=== PATIENT | female | born 1965 | race Caucasian/White ===

== ENCOUNTER → 2020-05-10 10:23 | Outpatient (CLI) | payer BC, SELFPAY ==
--- NOTE | ~2020-05-10 | MM_ITS ---
EXAMINATION: MM screening adalid BI w peter HISTORY: Screening TECHNIQUE: Craniocaudal and mediolateral oblique 3-D tomosynthesis images were obtained and synthetic 2-D images were generated. CAD analysis was submitted and interpreted. COMPARISON: No prior mammogram is available for comparison at this institution. BREAST PARENCHYMAL COMPOSITION: The breasts are heterogeneously dense, which may obscure small masses . FINDINGS: There are masses bilaterally in the upper outer quadrants which are partially obscured by f ibroglandular tissue. There are no suspicious calcifications in either breast. IMPRESSION: 1. Bilateral breast masses, upper outer quadrants. 2. Additional mammographic views and possible breast ultrasound are recommended. BI-RADS Category 0: Incomplete: Needs additional imaging evaluation. Reviewed, dictated and finalized at location A. TEAM LEAD IMPRESSION: 1. Bilateral breast masses, upper outer quadrants. 2. Additional mammographic views and possible breast ultrasound are recommended . BI-RADS Category 0: Incomplete: Needs additional imaging evaluation.
== END ==
PROVIDERS: PCP Internal Medicine; Visit Provider Obstetrics & Gynecology Gynecology
DX: Z12.31 Encounter for screening mammogram for malignant neoplasm of breast (principal); R92.8 Other abnormal and inconclusive findings on diagnostic imaging of breast
CPT/HCPCS: 77063; 77067

== ENCOUNTER → 2020-06-06 08:40 | Outpatient (CLI) | payer BC, SELFPAY ==
--- NOTE | ~2020-06-06 | MMUS_ITS ---
EXAMINATION: MM diagnostic mammo BI, US breast BI limited HISTORY: Follow-up breast asymmetries TECHNIQUE: Additional 3-D tomosynthesis images of the breasts were performed and synthetic 2-D images were generated. CAD analysis was submitted and interpreted. High resolution limited bilateral breast ultrasound was performed. COMPARISON: 05/10/2020 BREAST PARENCHYMAL COMPOSITION: The breasts are heterogenously dense, which may obscure small masses. FINDINGS: MAMMOGRAPHIC FINDINGS: There are partially obscured masses in the upper outer quadrant of both breasts. There are no suspici ous calcifications or architectural distortion. ULTRASOUND: Right breast ultrasound: Multiple simple cysts of the right breast. At 9:00, 5 cm from the nipple the re is a 4 mm hypoechoic mass with posterior acoustic enhancement and low-level internal echoes, likel y complicated cysts. There is a 1 cm cyst at 10:00, 8 cm from the nipple. At 11:00, 8 cm from the nip ple, there is a poorly circumscribed hypoechoic mass with posterior shadowing measuring 1.3 x 1.1 x 0 .9 cm. No internal vascularity. Left breast ultrasound: At 2:00, 6 cm from the nipple there is an 8 mm cyst. At 2:00, 6 cm from the n ipple there is a 7 mm cyst. At 3:00, 8 cm from the nipple there is an oval hypoechoic mass measuring 9 mm with low-level internal echoes and posterior acoustic enhancement, consistent with complicated c ysts. IMPRESSION: 1. Solid-appearing irregular shaped hypoechoic right breast mass at 11:00, 8 cm from the nipple measu ring up to 1.3 cm. 2. Ultrasound-guided right breast biopsy recommended. BI-RADS category 4, suspicious findings. Reviewed, dictated and finalized at location A. NT PROSECUTION ATTORNEY IMPRESSION: 1. Solid-appearing irregular shaped hypoechoic right breast mass at 11:00, 8 cm from the nipple measuring up to 1.3 cm. 2. Ultrasound-guided right breast biopsy recommended. BI-RADS category 4, suspicious findings.
== END ==
PROVIDERS: PCP Internal Medicine; Visit Provider Obstetrics & Gynecology Gynecology
DX: R92.8 Other abnormal and inconclusive findings on diagnostic imaging of breast (principal)
CPT/HCPCS: 76642; 77066

== ENCOUNTER → 2021-01-10 14:40 | Outpatient (CLI) | payer BC, SELFPAY ==
--- NOTE | ~2021-01-10 | DEXA_ITS ---
Bone Density Report Name: Lizbeth Wong Age: 55 Sex: Female Ethnicity: White Date of : 1965 Indication: monitoring treatment; height loss; postmenopausal Referring Provider: AGAPITO MARCOS Study: Bone densitometry was performed. Exam Date: January 10, 2021 Accession number: [id number] Bone Density: Region BMD T-score Z-score Classification AP Spine (L1, L2, L3) 0.998 -0.2 0.9 Normal Femoral Neck (Left) 0.848 0.0 1.1 Normal Total Hip (Left) 1.118 1.4 2.1 Normal Femoral Neck (Right) 0.795 -0.5 0.6 Normal Total Hip (Right) 1.042 0.8 1.5 Normal Total Hip Mean 1.080 1.1 1.8 Normal World Health Organization criteria for BMD impression classify patients as: Normal (T-score at or above -1.0), Osteopenia (T-score between -1.0 and -2.5), or Osteoporosis (T-score at or below -2.5). 10-year Fracture Risk: FRAX not reported because: All T-scores for Spine Total, Hip Total, Femoral Neck at or above -1.0 Treated for osteoporosis Previous Exams: Region Exam Age BMD T-score BMD Change BMD Change Date g/cm2 vs Baseline vs Previous AP Spine(L1, L2, L3) 01/10/2021 55 0.998 -0.2 0.010 0.010 09/11/2018 53 0.988 -0.3 Total Hip(Left) 01/10/2021 55 1.118 1.4 0.019 0.019 09/11/2018 53 1.099 1.3 Total Hip(Right) 01/10/2021 55 1.042 0.8 0.047* 0.047* 09/11/2018 53 0.995 0.4 *Denotes significance at 95% confidence level, LSC for AP Spine = 0.022 g/cm2, LSC for Total Hip = 0.027 g/cm2 Clinical Information Provided by Patient: Is being treated for osteoporosis Has used the following medications: HRT (i.e. estrogen/hormone therapy), Vitamin D, Calcium Patient maximum height was 63 Menopause Age: 53 No regular weight bearing exercise Does not regularly consume dairy products Drinks caffeinated beverages Onset of menses at age 13 Number of children 0 Impression: The patient has normal bone mass. No significant bone loss was observed. Discussion: PATIENT UNDER TREATMENT WITH NO SIGNIFICANT BMD LOSS SINCE LAST EXAM. In an untreated patient, BMD typically declines with age. A lack of decline or gain is usually a sign that treatment is efficacious and fracture risk is reduced. It is important to ask patients whether they are taking their medications and to encourage continued and appropriate compliance with their osteoporosis therapies to reduce fracture risk. It is also importan
== END ==
PROVIDERS: PCP Internal Medicine; Visit Provider Obstetrics & Gynecology Gynecology
DX: Z78.0 Asymptomatic menopausal state (principal)
CPT/HCPCS: 77080

== ENCOUNTER → 2021-06-01 14:36 | Outpatient (CLI) | payer BC, SELFPAY ==
--- NOTE | ~2021-06-01 | US_ITS ---
EXAMINATION: US transvaginal DATE: 06/01/2021 15:00 INDICATION: Postmenopausal bleeding TECHNIQUE: Multiple endovaginal sonographic images of the pelvis were obtained. COMPARISON: None. FINDINGS: The uterus measures 6.0 x 3.1 x 2.8 cm. The endometrial complex measures 6 mm. The ovaries are not visualized however no adnexal abnormality is seen. There is no free fluid in the pelvis. IMPRESSION: 1. No sonographic correlate for the patient's symptoms. Reviewed, dictated and finalized at location F. BUFFER
== END ==
PROVIDERS: Visit Provider Obstetrics & Gynecology Gynecology
DX: N95.0 Postmenopausal bleeding (principal)
CPT/HCPCS: 76830

== ENCOUNTER 2023-03-12 00:16 | Day surgery (SDC) | payer BC, SELFPAY ==
[2023-03-05 14:18] VITALS: BMI 38.0
--- NOTE | 2023-03-11 10:15 | PM.HPGS ---
History of Present Illness History of Present Illness Consent: Risks, benefits, and alternatives have been discussed and questions answered. Patient agrees to proceed with procedure. Chief complaint: GERD Narrative: Lizbeth Wong is a 57 year old female referred for investigation of chronic reflux symptoms. She takes omeprazole 20 mg per day. she has recently switched from omeprazole to pantoprazole. Has been on medication for 7 years. She is no longer having heartburn but has regurgitation frequently. This has resulted in a cough. She calls particularly when lying down, but also throughout the day will have a dry cough. It has been thought that this is due at least in part to acid reflux. She is due to have a scan of her chest in the near future to rule out other possibilities. Review of Systems Review of Systems: All systems reviewed & are unremarkable except as noted in HPI and below PMFSH Social History Social History Smoking packs per day: 1.5 Smoking cigarettes per day: 30.0 Years smoked: 20 Smoking pack-years: 30.00 Smoking status: Former smoker Tobacco type: cigarettes Alcohol intake: current Substance use: never Substance use type: does not use Living arrangements: with family Spiritual care concerns: No Meds Home Medications and Allergies Home Medications Medication Instructions Recorded Confirmed Type atorvastatin 20 mg tablet 20 mg PO HS 03/05/23 03/12/23 History calcium carbonate 500 mg-vitamin 1 tablet PO DAILY 03/05/23 03/12/23 History D3 10 mcg (400 unit) tablet (Calcium 500 + D) cholecalciferol (vitamin D3) 50 50 mcg PO DAILY 03/05/23 03/12/23 History mcg (2,000 unit) capsule (Vitamin D3) lisinopril 2.5 mg tablet 2.5 mg PO DAILY 03/05/23 03/12/23 History metformin 500 mg tablet 500 mg PO BID 03/05/23 03/12/23 History jmyirdgbkpeq-Jx-rpnc-minerals 1 tablet PO DAILY 03/05/23 03/12/23 History pantoprazole 40 mg tablet,delayed 40 mg PO DAILY 03/05/23 03/12/23 History release Allergies Allergy/AdvReac Type Severity Reaction Status Date / Time No Known Allergies Allergy Verified 03/12/23 06:39 Exam Const: General: alert Orientation/consciousness: patient oriented x3 Resp: Auscultation: clear to auscultation bilaterally Cardio: Rhythm: regular rhythm GI: GI Palp: Yes Soft to palpation and No Tenderness to palpation present (GI) Neuro: General: patient oriented x3 Assessment and Plan Assessment and plan (1) GERD (gastroesophageal reflux disease): Code(s): K21.9 - Gastro-esophageal reflux disease without esophagitis Status: Acute Assessment and Plan: EGD with possible biopsy or dilatation or cautery.
[2023-03-12 06:40] VITALS: BP 103/46; PULSE 93; RESP 16; TEMP 37.1; O2SAT 97; BMI 37.0
[2023-03-12] MEDS: LACTATED RINGERS 1,000 ML 150 ML IV CONT (06:51)
[2023-03-12 06:54] LABS: Glucose Point of Care 105 mg/dl (65-105)
--- NOTE | 2023-03-12 07:39 | WPDANESEPPF ---
Anes - Initial Pre Proc Eval Procedure: Operation Date: 03/12/23 08:00 Proposed Procedures p Esophagogastroduodenoscopy - Denver Ravi MD Date/Time: 03/12/23 07:39 Surgeon: Denver Ravi MD Pre Op Diagnosis: GERD Patient Data Age: 57 Gender: F Height: 1.6 m Weight: 94.7 kg Last Vital Signs Temp 98.7 F 03/12/23 06:40 Pulse 93 03/12/23 06:40 Resp 16 03/12/23 06:40 BP 103/46 L 03/12/23 06:40 Pulse Ox 97 03/12/23 06:40 O2 Del Method Room Air 03/12/23 06:40 Allergies Allergy/AdvReac Type Severity Reaction Status Date / Time No Known Allergies Allergy Verified 03/12/23 06:39 Home Medications Medication Instructions Recorded Confirmed Type atorvastatin 20 mg tablet 20 mg PO HS 03/05/23 03/12/23 History calcium carbonate 500 mg-vitamin 1 tablet PO DAILY 03/05/23 03/12/23 History D3 10 mcg (400 unit) tablet (Calcium 500 + D) cholecalciferol (vitamin D3) 50 50 mcg PO DAILY 03/05/23 03/12/23 History mcg (2,000 unit) capsule (Vitamin D3) lisinopril 2.5 mg tablet 2.5 mg PO DAILY 03/05/23 03/12/23 History metformin 500 mg tablet 500 mg PO BID 03/05/23 03/12/23 History rmgnyzwmooyf-Cn-ssew-minerals 1 tablet PO DAILY 03/05/23 03/12/23 History pantoprazole 40 mg tablet,delayed 40 mg PO DAILY 03/05/23 03/12/23 History release Laboratory Tests 03/12/23 06:47 POC Capillary Glucose 105 mg/dl (65-105) Patient hx anesthesia problems: none Family hx anesthesia problems: none Results Review: All pre-operative results and documents have been reviewed as part of the pre-operative evaluation. [facility] Social History Social History Smoking packs per day: 1.5 Smoking cigarettes per day: 30.0 Years smoked: 20 Smoking pack-years: 30.00 Smoking status: Former smoker Tobacco type: cigarettes Alcohol intake: current Substance use: never Substance use type: does not use Living arrangements: with family Spiritual care concerns: No Anes - Eval Final PreProcedure Day of Procedure 03/12/23 07:39 Patient weight: obese Heart: regular rate and rhythm Lungs: clear to auscultation Airway: Mallampati scale class II Neurological: alert and oriented Last oral intake: >/= 8 hours ASA classification: III Emergent: no Anesthetic plan: proceed Anesthesia type and monitoring: general GIVS and standard monitoring Results Review: All pre-operative results and documents have been reviewed as part of the pre-operative evaluation. Informed Consent: The patient's anesthetic plan and its attendant risks and benefits were discussed with the patient/family/POA. Questions were solicited and answers provided to the satisfaction of the patient/family/POA.
[2023-03-12 08:07] VITALS: BP 96/76; PULSE 87; RESP 21; O2SAT 95
[2023-03-12 08:17] VITALS: BP 107/58; PULSE 90; RESP 17; O2SAT 95
[2023-03-12 08:27] VITALS: BP 114/68; PULSE 80; RESP 20; O2SAT 99
== END 2023-03-12 08:30 | disposition home or self-care (01) ==
PROVIDERS: PCP Internal Medicine; Visit Provider Internal Medicine Gastroenterology
PROC: 0DJ08ZZ Inspection of Upper Intestinal Tract, Via Natural or Artificial Opening Endoscopic (ICD-10-PCS; CPT 43235; principal; 2023-03-12 08:00)
DX: K21.00 Gastro-esophageal reflux disease with esophagitis, without bleeding (principal); K44.9 Diaphragmatic hernia without obstruction or gangrene; Z87.891 Personal history of nicotine dependence; E66.9 Obesity, unspecified; Z68.37 Body mass index [BMI] 37.0-37.9, adult; Z79.84 Long term (current) use of oral hypoglycemic drugs
CPT/HCPCS: 43239; 82948; 88305; J2001; J2704; J7120

== ENCOUNTER 2023-04-23 07:47 | Outpatient (CLI) | payer BC, SELFPAY ==
--- NOTE | ~2023-04-23 | US_ITS ---
Limited Abdominal Sonogram: Real-time sonographic imaging of the right upper quadrant was performed. Clinical History: Right upper quadrant pain Findings: The liver appears normal with no evidence of mass lesion or bile duct dilatation. Main por iglesia vein demonstrates normal direction of flow. The gallbladder is well distended, and contains 2 pro bable small gallstones. The common bile duct measures 4 mm. The visualized pancreas, aorta, and IVC are unremarkable. Right kidney measures 11 cm in length, without hydronephrosis. Impression: Probable small gallstones. Reviewed, dictated and finalized at location M. CUTTER Impression: Probable small gallstones.
== END 2023-04-23 07:48 ==
PROVIDERS: PCP Internal Medicine; Visit Provider Surgery
DX: R10.11 Right upper quadrant pain (principal)
CPT/HCPCS: 76705

== ENCOUNTER 2023-05-30 11:07 | Outpatient (CLI) | payer BC, SELFPAY ==
[2023-05-30 11:46] LABS: Alanine Aminotransferase 30 U/L (6-35); Albumin Level 4.3 g/dL (3.5-5.1); Alkaline Phosphatase 110 U/L (38-126); Amylase 81 U/L (30-110); Aspartate Amino Transferase 31 U/L (14-36); Bilirubin,Total 0.6 mg/dL (0.2-1.3); Lipase 179 U/L (23-300)
[2023-05-30 11:47] LABS: Anion Gap 5 mmol/L (8-16); Blood Urea Nitrogen 14 mg/dL (7-17); Calcium 10.3 mg/dL (8.4-10.2); Carbon Dioxide 32 mmol/L (22-30); Chloride 103 mmol/L (98-107); Estimated Glomerular Filt Rate > 60; Glucose 98 mg/dL (65-110); Potassium 4.6 mmol/L (3.4-5.0); Sodium 140 mmol/L (137-145)
== END 2023-05-30 11:08 | disposition home or self-care (01) ==
LOC: ANHSURGERY 11:10
PROVIDERS: Anesthesiology; PCP Internal Medicine; Visit Provider Surgery
DX: Z01.818 Encounter for other preprocedural examination (principal); R10.11 Right upper quadrant pain; K21.9 Gastro-esophageal reflux disease without esophagitis; R73.03 Prediabetes
CPT/HCPCS: 36415; 80048; 80076; 82150; 83690; 86850; 86900; 86901

== ENCOUNTER 2023-06-04 00:42 | Day surgery (SDC) | payer BC, SELFPAY ==
[2023-05-26 15:17] VITALS: BMI 36.5
--- NOTE | 2023-05-26 15:28 | PC.NURSE ---
Report to the Outpatient Waiting Room, entrance under the green pavilion located off [facility], at time 0730__ on date06/04/23_. Planned Procedure Time: __0930__. Time changes happen often and if your time is changed the preop area will call you the afternoon before. - You and your visitor will be asked to self-screen and do not enter if you have any COVID symptoms. - A mask is optional within the hospital at this time. Patients may have clear liquids (water, carbonated beverages, clear teas, apple juice) until 3 hours prior to surgery with a maximum of 20 ounces. - No food from midnight until time of surgery - Infants may have breast milk until 4 hours before surgery, infant formula 6 hours prior to surgery. - Children will be allowed to drink immediately following surgery. If applicable, please bring a bottle or sippy cup to assist with drinking. Juice, water, soda, and popsicles are readily available. For infants on formula, please bring formula the day of surgery. Pacifiers are allowed. Take the following medications with a SIP of water the morning of surgery: NONE DO NOT STOP ANY OF YOUR OTHER PRESCRIPTION MEDICATIONS PRIOR TO SURGERY ?EXCEPT THE FOLLOWING Medications to discontinue per physician VITAMINS Date to take last dose 05/31/23__ Please no make-up, nail greenlandic, hairspray, perfume, deodorant, or body powder the day of surgery. No jewelry (including any body piercings) or valuables the day of surgery, leave them at home. Please take a shower or bath the night before, or the morning of, surgery with hibiclens antibacterial soap. Wear comfortable, loose fitting clothing. Children are encouraged to wear pajamas. - Jewelry must be removed prior to entering the operating room. Rings and piercings that are not removed may be cut off. - The hospital will not accept responsibility for valuables. - Please leave all valuables, including medications, at home the day of surgery. If you are going home after surgery, a licensed xm1 tank driver must drive you home. - NO public transportation without another adult if you receive anesthesia. - We recommend that an adult stay with you for 24 hours following discharge. - We also recommend that you do not drive, make important decision, drink alcoholic beverages, or take any drugs that were not prescribed by your health care provider for at least 24 hours after your discharge time. For Pediatric surgeries, we recommend two adults accompany the child home. Follow any additional instructions given to you from your surgeon. If you or anyone in your household have experienced Covid symptoms in the past week, please notify your surgeon or the nurse liaison at the phone number below for possible testing. Telephone instructions given to __PATIENT__and asked if any additional questions and then verbalized understanding. Patient advised to call surgeon office or pre surgery nurse liaison [phone] if any additional questions.
--- NOTE | 2023-06-03 13:58 | WPDANESEPPF ---
Anes - Initial Pre Proc Eval Procedure: Operation Date: 06/04/23 09:30 Proposed Procedures p Laparoscopic Cholecystectomy, Davinci Assisted - Jase Webber DO Date/Time: 06/03/23 13:58 Surgeon: Jase Webber DO Pre Op Diagnosis: Symptomatic cholelithiasis Patient Data Age: 57 Gender: F Height: 1.59 m Weight: 92 kg Allergies Allergy/AdvReac Type Severity Reaction Status Date / Time No Known Allergies Allergy Verified 06/04/23 07:55 Home Medications Medication Instructions Recorded Confirmed Type atorvastatin 20 mg tablet 20 mg PO HS 03/05/23 06/04/23 History calcium carbonate 500 mg-vitamin 1 tablet PO DAILY 03/05/23 06/04/23 History D3 10 mcg (400 unit) tablet (Calcium 500 + D) cholecalciferol (vitamin D3) 50 50 mcg PO DAILY 03/05/23 06/04/23 History mcg (2,000 unit) capsule (Vitamin D3) metformin 500 mg tablet 500 mg PO BID 03/05/23 06/04/23 History bpeyqrgmqkvt-Rn-ftso-minerals 1 tablet PO DAILY 03/05/23 06/04/23 History pantoprazole 40 mg tablet,delayed 40 mg PO DAILY 03/05/23 06/04/23 History release Patient hx anesthesia problems: none Family hx anesthesia problems: none Results Review: All pre-operative results and documents have been reviewed as part of the pre-operative evaluation. [facility] Past Medical History Medical History (Updated 06/03/23 @ 13:59 by Nathan Galloway DO) Diabetes type 2, controlled Erosive esophagitis Hyperlipemia Surgical History Surgical History History of carpal tunnel surgery Bilateral History of removal of cyst Hx of foot surgery Family History Family History Sibling Diabetes mellitus Breast cancer FH: kidney cancer Grandparent Diabetes mellitus Heart disease Leukemia Father Cerebrovascular accident Hypertension Malignant neoplasm of prostate Kidney disease Mother Lung cancer Social History Social History Smoking packs per day: 1 Smoking cigarettes per day: 20.0 Years smoked: 16 Smoking pack-years: 16.00 Smoking status: Former smoker Tobacco type: cigarettes Additional smoking assessment comments: 2006 QUIT DATE Alcohol intake: current Alcohol use details: 1 PER MONTH Substance use: never Substance use type: does not use Living arrangements: with family Spiritual care concerns: No Anes - Eval Final PreProcedure Day of Procedure 06/03/23 13:58 Patient weight: obese Heart: regular rate and rhythm Lungs: clear to auscultation Airway: Mallampati scale class II Neurological: alert and oriented Last oral intake: >/= 8 hours ASA classification: III Emergent: no Anesthetic plan: proceed Anesthesia type and monitoring: general ETT and standard monitoring Results Review: All pre-operative results and documents have been reviewed as part of the pre-operative evaluation. Informed Consent: The patient's anesthetic plan and its attendant risks and benefits were discussed with the patient/family/POA. Questions were solicited and answers provided to the satisfaction of the patient/family/POA.
[2023-06-04] VITALS (7 sets, daily range): BP systolic 109–1269; BP diastolic 58–75; PULSE 77–91; RESP 15–20; TEMP 36.3–37.1; O2SAT 92–99
--- NOTE | 2023-06-04 08:14 | SUR.PREOP ---
0814-small open area approximately 1 1/2' from umbilicus-states removed adhesive patch 1 week ago and skin tore. [employer]ie MASTER ELECTRICIAN aware and notified Dr. Webber-will proceed.
[2023-06-04] MEDS: ACETAMINOPHEN 500 MG TABLET 1000 MG PO (08:28)
[2023-06-04] MEDS: LACTATED RINGERS 1,000 ML 30 ML IV CONT ×2 (08:35→11:57)
[2023-06-04] MEDS: KETOROLAC 15 MG/ML VIAL (*BKC) IV PUSH (08:45)
[2023-06-04 08:47] LABS: Glucose Point of Care 90 mg/dl (65-105)
--- NOTE | 2023-06-04 09:14 | PM.IMHP ---
H&P: HPI History of Present Illness Date/Time: 06/04/23 09:14 Chief Complaint: Cholelithiasis Narrative: This is a 57-year-old woman who presents for laparoscopic cholecystectomy, Da Jillian assisted. She has a history of right upper quadrant pain and GERD. She was recently found to have a hiatal hernia on EGD but was noticing right upper quadrant pain with fried or fatty foods. A right upper quadrant ultrasound showed evidence of cholelithiasis. Review of Systems Review of Systems: All systems reviewed & are unremarkable except as noted in HPI and below Constitutional: Constitutional: Denies chills, Denies fever(s), Denies headache(s) and Denies weight loss Eyes: Eyes: Denies change in vision ENT: Denies dizziness, Denies headache(s), Denies neck mass and Denies throat swelling Cardiovascular: Cardiovascular: Denies chest pain, Denies lightheadedness and Denies dyspnea Respiratory: Respiratory: Denies cough, Denies dyspnea and Denies wheezing Gastrointestinal: Gastrointestinal: Denies abdominal pain, Denies change in bowel habits, Denies nausea and Denies vomiting Genitourinary: Genitourinary: Denies hematuria and Denies dysuria Musculoskeletal: Musculoskeletal: Reports as per HPI Integumentary/Breasts: Skin/Breast: Reports as per HPI Neurologic: Denies dizziness and Denies headache(s) Allergic/Immunologic: Allergic/Immunologic: Denies throat swelling and Denies wheezing [facility] Past Medical History Medical History (Updated 06/04/23 @ 09:16 by Jase Webber DO) Diabetes type 2, controlled Erosive esophagitis Hyperlipemia Surgical History Surgical History History of carpal tunnel surgery Bilateral History of removal of cyst Hx of foot surgery Family History Family History Sibling Diabetes mellitus Breast cancer FH: kidney cancer Grandparent Diabetes mellitus Heart disease Leukemia Father Cerebrovascular accident Hypertension Malignant neoplasm of prostate Kidney disease Mother Lung cancer Social History Social History Smoking packs per day: 1 Smoking cigarettes per day: 20.0 Years smoked: 16 Smoking pack-years: 16.00 Smoking status: Former smoker Tobacco type: cigarettes Additional smoking assessment comments: 2006 QUIT DATE Alcohol intake: current Alcohol use details: 1 PER MONTH Substance use: never Substance use type: does not use Living arrangements: with family Spiritual care concerns: No Meds Home Medications and Allergies Home Medications Medication Instructions Recorded Confirmed Type atorvastatin 20 mg tablet 20 mg PO HS 03/05/23 06/04/23 History calcium carbonate 500 mg-vitamin 1 tablet PO DAILY 03/05/23 06/04/23 History D3 10 mcg (400 unit) tablet (Calcium 500 + D) cholecalciferol (vitamin D3) 50 50 mcg PO DAILY 03/05/23 06/04/23 History mcg (2,000 unit) capsule (Vitamin D3) metformin 500 mg tablet 500 mg PO BID 03/05/23 06/04/23 History gesbysebgnwj-Xz-yogm-minerals 1 tablet PO DAILY 03/05/23 06/04/23 History pantoprazole 40 mg tablet,delayed 40 mg PO DAILY 03/05/23 06/04/23 History release Allergies Allergy/AdvReac Type Severity Reaction Status Date / Time No Known Allergies Allergy Verified 06/04/23 07:55 Vital Signs Vital Signs - 24 hr 06/04/23 07:51 Temperature 37.1 C Pulse Rate 90 Respiratory Rate 20 Blood Pressure 109/58 L Pulse Oximetry 95 Oxygen Delivery Room Air Exam Const: General: no acute distress and alert Orientation/consciousness: patient oriented x3 HENMT: Head: normocephalic and atraumatic Ears: hearing grossly normal bilaterally Face/Nose/Sinus: Normal nares present Mouth: Yes Normal oral and palatal mucosa present Eyes: Periorbital: periorbital findings normal Sclera: sclerae normal EOM
--- NOTE | 2023-06-04 09:16 | WPDHPUPDATE1 ---
History and Physical Update Update Date/Time: 06/04/23 09:16 History and Physical has been reviewed, including an updated exam of the patient. There are NO changes in the patient's condition. Risks, benefits, and alternatives have been discussed and questions answered. Patient agrees to proceed with procedure.
[2023-06-04] MEDS: ceFAZolin 2 GM/D5W 50 ML 2 GM/50 ML BAG IVPB (09:40)
[2023-06-04] MEDS: BUPIVACAINE/EPINEPHRINE 0.5% 30 ML VIAL INFILTRATE (10:13)
--- NOTE | 2023-06-04 10:47 | W.PM.PROC2 ---
Procedure Note - Detailed Date of Procedure 06/04/23 Pre-op Diagnosis Symptomatic cholelithiasis Post-op Diagnosis Same Procedure Performed Laparoscopic cholecystectomy, da Jillian assisted Surgeon Jase Webber, DO Anesthesia General and Local (0.5% bupivacaine) Indications This is a 57-year-old woman who presented with intermittent right upper quadrant pain after eating heavier foods. She was initially seen for GERD and had a recent EGD which showed evidence of hiatal hernia. When reviewing other symptoms she was complaining of this occasional right upper quadrant pain. A gallbladder ultrasound was obtained and this showed evidence of cholelithiasis. Discussions were made with the patient about treatment options and decision was made to proceed with robotic assisted laparoscopic cholecystectomy. Findings Laparoscopic cholecystectomy was performed. The gallbladder appeared slightly dilated but did not contain any pericholecystic adhesions. The cystic duct appeared normal in size. No other significant abnormalities were noted. There did appear to be 1 or 2 small stones within the gallbladder. The gallbladder was removed and sent to the lab for pathology. The hiatus was inspected and patient did appear to have a small hiatal hernia. No other abnormalities were noted in this region. Description of Procedure Procedure as well as risks, benefits, and alternatives were discussed with the patient. Written consent was obtained and placed in chart prior to procedure. Patient was brought back to surgical suite. She was placed supine on operating table. Time-out was done to confirm patient and procedure. She was then intubated by the anesthesia department. Her abdomen was then prepped and draped in sterile fashion using chlorhexidine prep. 0.5% bupivacaine was infiltrated locally at the site of each port placement. An 8 mm incision was made just superior to the umbilicus and a 5 mm Optiview trocar was then advanced through the abdominal layers under direct visualization. Once inside the abdominal cavity, carbon dioxide insufflation was used to create a pneumoperitoneum. The camera was inserted and the abdomen was inspected. No mediated abnormalities were noted. The patient was placed in 10? reverse Trendelenburg position and rotated 10? to the left. Two 8 mm incisions were made in the right lateral abdomen and 2 8 mm trocars were inserted under direct visualization. A 12 mm incision was made in the left lateral abdomen and a 12 mm trocar was inserted under direct visualization. The 5 mm Optiview trocar was then removed and another 8 mm trocar was inserted in its place. The robotic arms were then brought up to the patient's bedside and secured to each port. The camera and instruments were inserted. I then moved over to the robotic consult to take control of the camera and instruments. The gallbladder was grasped at the fundus and retracted cephalad. The infundibulum of the gallbladder was then grasped and retracted laterally. Hook electrocautery was then used to carefully dissect around the neck of the gallbladder. The cystic duct was identified and a window was created around it using hook electrocautery. The cystic artery was also identified and a window was created behind it using hook electrocautery. Critical view of safety was identified visualizing the cystic duct running directly into the neck of the gallbladder and the cystic artery running directly into the wall the gallbladder. Hemo lock clips were placed on both the cystic duct and cystic artery. Two clips were placed proximally and 1 distally. Hook electrocautery was then used to transect in between the clips. Once safely away from the nura hepatus, hook electrocautery was used to dissect the gallbladder off of the liver bed. Once the gallbladder was completely dissected free it was then placed in an Endo-Catch bag and removed through the 12 mm port site. The liver bed was carefully
[2023-06-04 11:12] LABS: Glucose Point of Care 147 mg/dl (65-105)
[2023-06-04] MEDS: fentaNYL CITRATE INJ (*CRX) 100 MCG/2 ML VIAL 25 MCG IV PUSH ×2 (11:18→11:30)
[2023-06-04] MEDS: oxyCODONE HCL (*CRX) 5 MG TAB IR PO (12:19)
== END 2023-06-04 13:10 | disposition home or self-care (01) ==
PROVIDERS: PCP Internal Medicine; Visit Provider Surgery
PROC: 0FT44ZZ Resection of Gallbladder, Percutaneous Endoscopic Approach (ICD-10-PCS; CPT 47562; principal; 2023-06-04 09:30)
DX: K80.10 Calculus of gallbladder with chronic cholecystitis without obstruction (principal); E11.9 Type 2 diabetes mellitus without complications; E78.5 Hyperlipidemia, unspecified; Z79.84 Long term (current) use of oral hypoglycemic drugs; Z87.891 Personal history of nicotine dependence; E66.9 Obesity, unspecified; Z68.36 Body mass index [BMI] 36.0-36.9, adult
CPT/HCPCS: 47562; S2900; 82948; 88304; A9270; J0690; J1885; J2250; J2405; J2704; J3010; J7120

== ENCOUNTER 2023-10-20 11:04 | Outpatient (CLI) | payer BC, SELFPAY ==
[2023-10-20 11:26] LABS: Basophils Absolute Auto 0.1 K/mm3 (0.0-0.1); Basophils Percent Auto 1.1 % (0.2-1.2); Eosinophils Absolute Auto 0.2 K/mm3 (0-0.3); Eosinophils Percent Auto 2.2 % (0-4.4); Hematocrit 36.8 % (37.0-47.0); Hemoglobin 10.9 g/dL (12.0-15.0); Immature Granulocyte Absolute 0.03 K/mm3 (0.00-0.031); Immature Granulocyte Percent A 0.3 % (0-0.5); Lymphocytes Absolute Auto 2.72 K/mm3 (0.9-3.2); Lymphocytes Percent Auto 29.6 % (18.3-44.2); Mean Corpuscular HGB Conc 29.6 g/dl (32-36); Mean Corpuscular Volume 80.9 fl (80-100); Mean Platelet Volume 9.4 fl (7.4-10.4); Monocytes Absolute Auto 0.9 K/mm3 (0.1-0.6); Monocytes Percent Auto 9.5 % (2.6-8.5); Neutrophils Absolute Auto 5.3 K/mm3 (1.3-6.7); Neutrophils Percent Auto 57.3 % (45.5-73.1); Platelet Count Result 390 k/mm3 (150-375); Red Blood Count 4.55 M/mm3 (4.2-5.4); Red Cell Distribution Width 14.6 % (11.5-14.5); White Blood Count 9.2 K/mm3 (4.5-10.0)
[2023-10-20 11:33] LABS: Anisocytosis 1+; Hypochromasia 1+; Microcytosis 1+ (NORMAL); Platelet Estimate Adequate (Adequate); Schistocytes None Seen
[2023-10-20 11:34] LABS: Ovalocytes 1+; Poikilocytosis 1+
[2023-10-20 13:20] LABS: Iron 34 ug/dL (37-170)
[2023-10-20 13:23] LABS: Alanine Aminotransferase 25 U/L (6-35); Albumin Level 4.6 g/dL (3.5-5.1); Alkaline Phosphatase 108 U/L (38-126); Anion Gap 9 mmol/L (4-12); Aspartate Amino Transferase 30 U/L (14-36); Bilirubin,Total 0.7 mg/dL (0.2-1.3); Blood Urea Nitrogen 11 mg/dL (7-17); Calcium 9.4 mg/dL (8.4-10.2); Carbon Dioxide 28 mmol/L (22-30); Chloride 101 mmol/L (98-107); Estimated Glomerular Filt Rate > 60; Glucose 85 mg/dL (65-110); Lactate Dehydrogenase 223 U/L (120-246); Potassium 4.2 mmol/L (3.4-5.0); Sodium 138 mmol/L (137-145)
[2023-10-20 13:31] LABS: Percent Iron Saturation 8 % (20-50)
[2023-10-20 13:56] LABS: Ferritin 5.62 ng/mL (11.1-264)
[2023-10-20 14:31] LABS: Folic Acid > 20.0 ng/mL (2.76->20)
[2023-10-25 06:58] LABS: Methylmalonic Acid 154 nmol/L (87-318)
[2023-10-28 17:00] LABS: Soluble Transferrin Receptor 2.83 mg/L (0.76-1.76)
== END 2023-10-20 11:05 | disposition home or self-care (01) ==
LOC: ANHLAB 11:06
PROVIDERS: Nurse Practitioner Family; PCP Internal Medicine; Visit Provider Internal Medicine Hematology & Oncology
DX: D50.9 Iron deficiency anemia, unspecified (principal)
CPT/HCPCS: 36415; 80053; 82607; 82728; 82746; 83540; 83550; 83615; 83921; 84238; 85025

== ENCOUNTER 2024-01-09 11:12 | Outpatient (CLI) | payer BC, SELFPAY ==
--- NOTE | 2024-01-09 11:27 | ECG_ITS ---
Test Date: 2024-01-09 11:33:55 Measurements Intervals [place] Rate: 80 P: 48 ID: [id number] QRS: 7 QRSD: 84 T: 29 QT: 369 QTc: 427 Interpretive Statements SINUS RHYTHM POSSIBLE LEFT ATRIAL ENLARGEMENT [-0.1mV P WAVE IN V1/V2] No previous ECG available for comparison Electronically Signed On 01-10-2024 14:23:18 CDT by Lv Beck M.D.
== END 2024-01-09 11:13 | disposition home or self-care (01) ==
PROVIDERS: PCP Internal Medicine; Visit Provider Anesthesiology
DX: Z01.818 Encounter for other preprocedural examination (principal); K44.9 Diaphragmatic hernia without obstruction or gangrene
CPT/HCPCS: 36415; 86850; 86900; 86901; 93005

== ENCOUNTER 2024-01-14 00:55 | Day surgery (SDC) | payer BC, SELFPAY ==
[2024-01-09 09:36] VITALS: BMI 34.0
--- NOTE | 2024-01-09 10:31 | PC.NURSE ---
Addendum entered by Kellie Jeff RN 01/09/24 10:33: Patient to have Clear Liquids for Dinner then nothing by mouth after midnight. Original Note: Report to the Outpatient Waiting Room, entrance under the green pavilion located off [facility], at time _0600 on date __01/14/24 . Planned Procedure Time: _30 .? Time changes happen often and if your time is changed the preop area will call you the afternoon before. - You and your visitor will be asked to self-screen and do not enter if you have any COVID symptoms. Please call surgeon if you need to reschedule. - A mask is optional within the hospital at this time. Patients may have clear liquids (water, carbonated beverages, clear teas, apple juice) until 3 hours prior to surgery with a maximum of 20 ounces. - No food from midnight until time of surgery and no smoking - Infants may have breast milk until 4 hours before surgery, formula 6 hours prior to surgery. - Children will be allowed to drink immediately following surgery.? If applicable, please bring a bottle or sippy cup to assist with drinking. Juice, water, soda, and popsicles are readily available.? For infants on formula, please bring formula the day of surgery.? Pacifiers are allowed. Take only the following medications with a SIP of water on the morning of surgery: __None DO NOT STOP ANY OF YOUR OTHER PRESCRIPTION MEDICATIONS PRIOR TO SURGERY EXCEPT THE FOLLOWING Medications to discontinue per physician _Vitamins and supplements Date to take last dose__3 days prior Please no make-up, nail occitan, hairspray, perfume, deodorant, or body powder the day of surgery.? No jewelry (including any body piercings) or valuables the day of surgery, leave them at home.? Please take a shower or bath the night before, or the morning of, surgery with an antibacterial soap.? Wear comfortable, loose fitting clothing.? Children are encouraged to wear pajamas. - Jewelry must be removed prior to entering the operating room.? Rings and piercings that are not removed may be cut off. - The hospital will not accept responsibility for valuables.? - Please leave all valuables, including medications, at home the day of surgery. If you are going home after surgery, a licensed trash truck driver must drive you home.? - NO public transportation without another adult if you receive anesthesia. - We recommend that an adult stay with you for 24 hours following discharge. - We also recommend that you do not drive, make important decision, drink alcoholic beverages, or take any drugs that were not prescribed by your health care provider for at least 24 hours after your discharge time. For Pediatric surgeries, we recommend two adults accompany the child home. Follow any additional instructions given to you from your surgeon. Telephone instructions given to _Lizbeth and asked if any additional questions and then verbalized understanding. Patient advised to call surgeon office or pre surgery nurse liaison [phone] if any additional questions.
[2024-01-14] VITALS (15 sets, daily range): BP systolic 104–135; BP diastolic 50–82; PULSE 74–96; RESP 12–22; TEMP 36.3–37.4; O2SAT 88–98
--- NOTE | 2024-01-14 06:48 | WPDANESEPPF ---
Anes - Initial Pre Proc Eval Procedure: Operation Date: 01/14/24 07:30 Proposed Procedures p Laparoscopic Paraesophageal Hernia Repair with Fundoplication, Davinci Assisted - Jase Webber DO Date/Time: 01/14/24 06:48 Surgeon: Jase Webber DO Pre Op Diagnosis: Hiatal Hernia, GERD Patient Data Age: 58 Gender: F Height: 1.6 m Weight: 87.09 kg Last Vital Signs O2 Del Method Room Air 01/09/24 09:58 Allergies Allergy/AdvReac Type Severity Reaction Status Date / Time povidone-iodine Allergy Unknown Hives Verified 01/14/24 06:22 [From Betadine] Home Medications Medication Instructions Recorded Confirmed Type atorvastatin 20 mg tablet 20 mg PO HS 03/05/23 01/14/24 History calcium carbonate 500 mg-vitamin 1 tablet PO DAILY 03/05/23 01/14/24 History D3 10 mcg (400 unit) tablet (Calcium 500 + D) cholecalciferol (vitamin D3) 50 50 mcg PO DAILY 03/05/23 01/14/24 History mcg (2,000 unit) capsule (Vitamin D3) metformin 500 mg tablet 500 mg PO BID 03/05/23 01/14/24 History vnzwjrjwurey-Xj-nqjv-minerals 1 tablet PO DAILY 03/05/23 01/14/24 History pantoprazole 40 mg tablet,delayed 40 mg PO DAILY 03/05/23 01/14/24 History release ferrous sulfate 325 mg (65 mg 65 mg PO DAILY 01/09/24 01/14/24 History iron) tablet Patient hx anesthesia problems: none Family hx anesthesia problems: none Results Review: All pre-operative results and documents have been reviewed as part of the pre-operative evaluation. [facility] Past Medical History Medical History Diabetes type 2, controlled Erosive esophagitis Hyperlipemia Surgical History Surgical History History of carpal tunnel surgery Bilateral History of laparoscopic cholecystectomy Laparoscopic cholecystectomy, da Jillian assisted 06/04/23 [facility] History of removal of cyst Hx of foot surgery Family History Family History Sibling Diabetes mellitus Breast cancer FH: kidney cancer Grandparent Diabetes mellitus Heart disease Leukemia Father Cerebrovascular accident Hypertension Malignant neoplasm of prostate Kidney disease Mother Lung cancer Social History Social History Smoking packs per day: 1 Smoking cigarettes per day: 20.0 Years smoked: 16 Smoking pack-years: 16.00 Smoking status: Former smoker Tobacco type: cigarettes Smoking end date: 11/13/06 Additional smoking assessment comments: 2006 QUIT DATE Alcohol intake: current Alcohol use details: 1 PER MONTH Substance use: never Substance use type: does not use Living arrangements: with family Spiritual care concerns: No Anes - Eval Final PreProcedure Day of Procedure 01/14/24 06:48 Patient weight: obese Heart: regular rate and rhythm Lungs: clear to auscultation Airway: Mallampati scale class II Neurological: alert and oriented Last oral intake: >/= 8 hours ASA classification: III Emergent: no Anesthetic plan: proceed Anesthesia type and monitoring: general ETT and standard monitoring Results Review: All pre-operative results and documents have been reviewed as part of the pre-operative evaluation. Informed Consent: The patient's anesthetic plan and its attendant risks and benefits were discussed with the patient/family/POA. Questions were solicited and answers provided to the satisfaction of the patient/family/POA.
[2024-01-14 07:02] LABS: Glucose Point of Care 107 mg/dl (65-105)
--- NOTE | 2024-01-14 07:13 | PM.IMHP ---
H&P: HPI History of Present Illness Date/Time: 01/14/24 07:13 Chief Complaint: hiatal hernia, GERD Narrative: 58 yo woman presents for hiatal hernia repair. She has had longstanding GERD and symptoms from the hiatal hernia. She reports no changes since last seen in office. Review of Systems Review of Systems: All systems reviewed & are unremarkable except as noted in HPI and below Constitutional: Constitutional: Denies chills, Denies fever(s), Denies headache(s) and Denies weight loss Eyes: Eyes: Denies change in vision ENT: Denies dizziness, Denies headache(s), Denies neck mass and Denies throat swelling Cardiovascular: Cardiovascular: Denies chest pain, Denies lightheadedness and Denies dyspnea Respiratory: Respiratory: Denies cough, Denies dyspnea and Denies wheezing Gastrointestinal: Gastrointestinal: Denies abdominal pain, Denies change in bowel habits, Denies nausea and Denies vomiting Genitourinary: Genitourinary: Denies hematuria and Denies dysuria Musculoskeletal: Musculoskeletal: Reports as per HPI Integumentary/Breasts: Skin/Breast: Reports as per HPI Neurologic: Denies dizziness and Denies headache(s) Allergic/Immunologic: Allergic/Immunologic: Denies throat swelling and Denies wheezing PMFSH Past Medical History Medical History Diabetes type 2, controlled Erosive esophagitis Hyperlipemia Surgical History Surgical History History of carpal tunnel surgery Bilateral History of laparoscopic cholecystectomy Laparoscopic cholecystectomy, da Jillian assisted 06/04/23 [facility] History of removal of cyst Hx of foot surgery Family History Family History Sibling Diabetes mellitus Breast cancer FH: kidney cancer Grandparent Diabetes mellitus Heart disease Leukemia Father Cerebrovascular accident Hypertension Malignant neoplasm of prostate Kidney disease Mother Lung cancer Social History Social History Smoking packs per day: 1 Smoking cigarettes per day: 20.0 Years smoked: 16 Smoking pack-years: 16.00 Smoking status: Former smoker Tobacco type: cigarettes Smoking end date: 11/13/06 Additional smoking assessment comments: 2006 QUIT DATE Alcohol intake: current Alcohol use details: 1 PER MONTH Substance use: never Substance use type: does not use Living arrangements: with family Spiritual care concerns: No Meds Home Medications and Allergies Home Medications Medication Instructions Recorded Confirmed Type atorvastatin 20 mg tablet 20 mg PO HS 03/05/23 01/14/24 History calcium carbonate 500 mg-vitamin 1 tablet PO DAILY 03/05/23 01/14/24 History D3 10 mcg (400 unit) tablet (Calcium 500 + D) cholecalciferol (vitamin D3) 50 50 mcg PO DAILY 03/05/23 01/14/24 History mcg (2,000 unit) capsule (Vitamin D3) metformin 500 mg tablet 500 mg PO BID 03/05/23 01/14/24 History hmbyubazmikd-Sl-nhvi-minerals 1 tablet PO DAILY 03/05/23 01/14/24 History pantoprazole 40 mg tablet,delayed 40 mg PO DAILY 03/05/23 01/14/24 History release ferrous sulfate 325 mg (65 mg 65 mg PO DAILY 01/09/24 01/14/24 History iron) tablet Allergies Allergy/AdvReac Type Severity Reaction Status Date / Time povidone-iodine Allergy Unknown Hives Verified 01/14/24 06:22 [From Betadine] Exam Const: General: no acute distress and alert Orientation/consciousness: patient oriented x3 HENMT: Head: normocephalic and atraumatic Ears: hearing grossly normal bilaterally Face/Nose/Sinus: Normal nares present Mouth: Yes Normal oral and palatal mucosa present Eyes: Periorbital: periorbital findings normal Sclera: sclerae normal EOM: EOMs intact bilaterally Neck: Neck: normal visual inspection, no lymphadenopathy and trachea mi
--- NOTE | 2024-01-14 07:16 | WPDHPUPDATE1 ---
History and Physical Update Update Date/Time: 01/14/24 07:16 History and Physical has been reviewed, including an updated exam of the patient. There are NO changes in the patient's condition. Risks, benefits, and alternatives have been discussed and questions answered. Patient agrees to proceed with procedure.
[2024-01-14] MEDS: LACTATED RINGERS 1,000 ML 30 ML IV CONT ×2 (07:20→10:03)
[2024-01-14] MEDS: ceFAZolin 2 GM/D5W 50 ML 2 GM/50 ML BAG IVPB (07:32)
[2024-01-14] MEDS: BUPIVACAINE/EPINEPHRINE 0.5% 10 ML VIAL 30 ML INFILTRATE (08:08)
--- NOTE | 2024-01-14 10:01 | W.PM.PROC2 ---
Procedure Note - Detailed Date of Procedure 01/14/24 Pre-op Diagnosis Hiatal Hernia, GERD Post-op Diagnosis Same (Type III paraesophageal hiatal hernia) Procedure Performed Robotic assisted laparoscopic paraesophageal hernia repair with 270 degree fundoplication Surgeon Jase Webber, DO Anesthesia General and Local (0.5% bupivicaine with epi) Indications This is a 58-year-old woman who presented with chronic acid reflux related to a hiatal hernia. She was found to have a medium-sized hiatal hernia on EGD as well as evidence of esophagitis. Esophageal manometry showed normal esophageal motility. She continued to have refractory reflux despite proton pump inhibitor therapy and dietary modifications. Discussions were made with the patient about treatment options and decision was made to proceed with robotic assisted laparoscopic hiatal hernia repair with fundoplication. Findings The patient was found to have a type 3 paraesophageal hiatal hernia with the GE junction located about 3-4 cm above the diaphragm. The gastric cardia and part of the fundus was also located within the hiatal hernia. The hernia sac was reduced and enough esophageal length was mobilized into the abdominal cavity. I did not need to excise the hernia sac. The hiatal hernia was then repaired and a 270 degree fundoplication was performed. No specimens were obtained for pathology. Description of Procedure Procedure as well as risks, benefits, and alternatives were discussed with the patient. Written consent was obtained and placed in chart prior to procedure. Patient was brought back to surgical suite. She was placed supine on operating table. Time-out was done to confirm patient and procedure. She was then intubated by the anesthesia department. Her abdomen was prepped and draped in sterile fashion using chlorhexidine prep. 0.5% bupivacaine with epinephrine was infiltrated locally around each area for port placement. An 8 mm incision was made in the left upper quadrant 2 cm inferior to the costal margin in the mid clavicular line. A 5 mm Optiview trocar was then advanced through the abdominal layers under direct visualization. Once inside the abdominal cavity, carbon dioxide insufflation was used to create a pneumoperitoneum. The camera was inserted in the abdomen was inspected. No immediate abnormalities were identified. Another 8 mm camera port was placed about 15 cm inferior to the xiphoid just to the left of midline under direct visualization. An 8 mm port was placed in the anterior axillary line on the left upper quadrant at about the same transverse plane as the camera port. An 8 mm port was placed in the right upper quadrant and another 8 mm AirSeal assist port was placed in right lower quadrant just to the right of the umbilicus. A 5 mm incision was made in the subxiphoid region and the Denae liver retractor was inserted through this incision into the abdominal cavity to lift up the left lobe of the liver. This was secured in place to the bed of the table. The patient was then placed in 30? reverse Trendelenburg. The robotic arms were secured to the ports and the robotic camera and instruments were inserted. A force bipolar grasper was placed in the right upper quadrant port. The vessel sealer was placed in the midclavicular left upper quadrant port and a Cadiere grasper was placed in the anterior axillary line left upper quadrant port. I then moved over to the robotic console took control of the camera and instruments. A careful thorough exam was performed throughout the abdomen. The stomach was then reduced from within the hiatal hernia. The gastrohepatic ligament was taken down medially using the vessel sealer to identify the right estrellita. Peritoneum along the medial side of the right estrellita was then divided using the vessel sealer. This allowed me to enter into the avascular plane and carefully dissect the hernia sac from within the hiatus. I continued the
[2024-01-14 10:14] LABS: Glucose Point of Care 174 mg/dl (65-105)
[2024-01-14] MEDS: fentaNYL CITRATE INJ (*CRX) 100 MCG/2 ML VIAL 25 MCG IV PUSH ×4 (10:19→11:00)
[2024-01-14] MEDS: HYDROmorphone HCL INJ (*CRX) 1 MG/ML SYR IV PUSH (11:34)
[2024-01-14] MEDS: IBUPROFEN IV 800 MG/200 ML 800 MG/200 ML BAG 400 MG IVPB (11:35)
[2024-01-14] MEDS: LACTATED RINGERS 1,000 ML 100 ML IV CONT (11:35)
[2024-01-14] MEDS: metFORMIN HCL 500 MG TABLET PO (17:16)
[2024-01-14] MEDS: SIMETHICONE 80 MG TAB.CHEW PO ×2 (17:16→20:16)
[2024-01-14] MEDS: ATORVASTATIN 20 MG TABLET PO (20:16)
[2024-01-14] MEDS: oxyCODONE HCL (*CRX) 2.5 MG TAB IR PO (20:27)
[2024-01-15 04:47] VITALS: BP 112/50; PULSE 76; RESP 18; TEMP 36.4; O2SAT 93
[2024-01-15] MEDS: oxyCODONE HCL (*CRX) 2.5 MG TAB IR PO (05:05)
[2024-01-15 06:49] LABS: Hematocrit 40.9 % (37.0-47.0); Hemoglobin 12.8 g/dL (12.0-15.0); Mean Corpuscular HGB Conc 31.3 g/dl (32-36); Mean Corpuscular Hemoglobin 27.1 pg (26-34); Mean Corpuscular Volume 86.5 fl (80-100); Mean Platelet Volume 9.3 fl (7.4-10.4); Platelet Count Result 295 k/mm3 (150-375); Red Blood Count 4.73 M/mm3 (4.2-5.4); Red Cell Distribution Width 17.7 % (11.5-14.5); White Blood Count 15.4 K/mm3 (4.5-10.0)
[2024-01-15 07:01] LABS: Anion Gap 10 mmol/L (4-12); Blood Urea Nitrogen 11 mg/dL (7-17); Carbon Dioxide 30 mmol/L (22-30); Chloride 98 mmol/L (98-107); Estimated CRCL calculation 91 ml/min; Estimated Glomerular Filt Rate > 60; Glucose 98 mg/dL (65-110); Potassium 4.5 mmol/L (3.4-5.0); Sodium 138 mmol/L (137-145)
[2024-01-15 08:44] VITALS: BP 109/64; PULSE 80; RESP 14; TEMP 36.1; O2SAT 88
[2024-01-15] MEDS: PANTOPRAZOLE 40 MG TABLET PO (08:53)
[2024-01-15] MEDS: metFORMIN HCL 500 MG TABLET PO (08:53)
[2024-01-15] MEDS: SIMETHICONE 80 MG TAB.CHEW PO ×2 (08:53→12:26)
--- NOTE | 2024-01-15 09:06 | WPDANESPN ---
Anes - Prog Note Post-Op Date/Time: 01/15/24 09:06 Cardiovascular status: normal Respiratory status: normal Airway patency: baseline Mental status: baseline Post-Op hydration status: normal Vital Signs: Last Vital Signs Temp 96.9 F L 01/15/24 08:44 Pulse 80 01/15/24 08:44 Resp 14 01/15/24 08:44 BP 109/64 01/15/24 08:44 Pulse Ox 88 L 01/15/24 08:44 O2 Del Method Room Air 01/14/24 20:00 O2 Flow Rate 3 01/14/24 11:00 Pain Score (VAS): 0/10 I/O: Intake & Output 01/14/24 01/15/24 01/15/24 23:59 07:59 15:59 Intake Total 1750 Balance 1750 Laboratory Tests 01/15/24 06:31 01/15/24 06:31 01/14/24 01/15/24 10:11 06:31 WBC 15.4 H RBC 4.73 Hgb 12.8 Hct 40.9 MCV 86.5 MCH 27.1 MCHC 31.3 L RDW 17.7 H Plt Count 295 MPV 9.3 Sodium 138 Potassium 4.5 Chloride 98 Carbon Dioxide 30 Anion Gap 10 BUN 11 D Creatinine 0.60 L Estim Creat Clear Calc 91 Estimated GFR > 60 Glucose 98 POC Capillary Glucose 174 H Calcium 9.0 Post-procedural complaints: none Patient Feedback: Patient satisfied with anesthetic care.
[2024-01-15] MEDS: ACETAMINOPHEN 500 MG TABLET PO (09:19)
[2024-01-15] MEDS: ENOXAPARIN 40 MG/0.4 ML SYRINGE SUB-Q (09:21)
[2024-01-15 10:24] VITALS: O2SAT 94
[2024-01-15 12:40] VITALS: BP 117/61; PULSE 86; RESP 16; TEMP 36.7; O2SAT 97
--- NOTE | 2024-01-15 14:36 | PM.DS ---
DS: Admitting Diagnosis Discharge Date 01/15/2024 Admitting Diagnosis Hiatal hernia DS: Discharge Diagnosis Discharge Diagnosis (1) Hiatal hernia: Code(s): K44.9 - Diaphragmatic hernia without obstruction or gangrene Status: Acute DS: Summary Hospital Course Reason for hospitalization: This is a 58-year-old woman who has a longstanding history of GERD and symptoms from her hiatal hernia. She was seen as an outpatient in our office by Dr. Chinchilla and presented on 01/14/2024 for a hiatal hernia repair. Hospital Course: Patient underwent robotic assisted laparoscopic paraesophageal hernia repair with [address] Chinchilla on 01/14/2024. See operative note for details. She was started on a clear liquid diet postoperatively and transferred to the medical floor. She has been doing well and postoperative pain has been controlled. Her diet was advanced to full liquids postop day 1. No dysphagia or regurgitation. She is tolerating activity and her full liquid diet. Voiding without difficulty. No acute issues at this time. She is stable for discharge postop day 1. Status at Discharge Functional status at discharge: independent ambulation Overall status at discharge: patient is progressing back to baseline Time Spent with Patient Time attestation: Total time spent providing and/or coordinating discharge services: Time spent: Less than 30 minutes Exam Const: General: comfortable and no acute distress Resp: Effort & Inspection: normal respiratory effort Auscultation: clear to auscultation bilaterally Cardio: Rate: regular rate Rhythm: regular rhythm GI: Inspection: non-distended and incision (incisions dry and intact) GI Palp: Yes Soft to palpation, Yes Tenderness to palpation present (GI) (incisional) and No Guarding due to palpation present (GI) Auscultation: normal bowel sounds Neuro: General: moves all extremities and no focal motor deficits Extrem: General: no calf tenderness and no edema Psych: Mental Status: mental status grossly normal Insight: Good insight present (Psych) DS: Data Data Completed and Pending Labs on day of discharge: Labs from last 24 hours 01/15/24 06:31 WBC 15.4 H RBC 4.73 Hgb 12.8 Hct 40.9 MCV 86.5 MCH 27.1 MCHC 31.3 L RDW 17.7 H Plt Count 295 MPV 9.3 Sodium 138 Potassium 4.5 Chloride 98 Carbon Dioxide 30 Anion Gap 10 BUN 11 D Creatinine 0.60 L Estim Creat Clear Calc 91 Estimated GFR > 60 Glucose 98 Calcium 9.0 Procedures/Treatments: Procedures Operation Date: 01/14/24 07:30 Actual Procedure Side Surgeon p Laparoscopic Paraesophageal Hernia Repair with Fundoplication, Davinci Assisted Jase Chinchilla, DO Discharge Plan Discharge Attending physician on discharge: Jase Chinchilla Discharging Clinician: Marcela Mejía Patient Disposition: Home, Self-Care Discharge Instructions: DISCHARGE INSTRUCTION SHEET FOR HERNIA SURGERIES DR. CHINCHILLA 1. May shower, no soaking in bath x 2weeks. 2. Call office for: Wound increasingly painful or bleeding Vomiting Fever of greater than 101 degrees 3. If no bowel movement for three days, take 1 oz. (30 ml) Milk of Magnesia or MiraLax 17g 1 to 2 times daily. 4. No heavy lifting > 10-15 pounds x at least 2 weeks for hernia repairs 5. No driving for 3 days or while taking narcotic pain medications. 6. Ice to surgical site for 48 hours (30 min on, then 30 min off). 7. Up walking 10-30 minutes three times per day. 8. Continue a full liquid diet for 2 weeks. No straws or carbonated beverages. 9. Follow-up with Dr. Chinchilla as scheduled in the office 10. Oral pain medications prescription to be sent to pharmacy (hydrocodone, which is a narcotic pain medication, only take as needed for moderate to severe pain). Take Tylenol 500mg every 6 hours and Ibuprofen 600mg every 6 hours
== END 2024-01-15 15:52 | disposition home or self-care (01) ==
LOC: ANHSURGERY 06:07 → ANH3MEDSUR 11:04
PROVIDERS: PCP Internal Medicine; Visit Provider Surgery
PROC: 0DV44ZZ Restriction of Esophagogastric Junction, Percutaneous Endoscopic Approach (ICD-10-PCS; CPT 43280; principal; 2024-01-14 07:30)
DX: K44.9 Diaphragmatic hernia without obstruction or gangrene (principal); K21.00 Gastro-esophageal reflux disease with esophagitis, without bleeding; E78.5 Hyperlipidemia, unspecified; E11.9 Type 2 diabetes mellitus without complications; E66.9 Obesity, unspecified; G89.18 Other acute postprocedural pain; Z68.33 Body mass index [BMI] 33.0-33.9, adult; Z79.84 Long term (current) use of oral hypoglycemic drugs; Z98.890 Other specified postprocedural states; Z90.49 Acquired absence of other specified parts of digestive tract; Z87.891 Personal history of nicotine dependence; Z80.3 Family history of malignant neoplasm of breast; Z80.51 Family history of malignant neoplasm of kidney; Z80.42 Family history of malignant neoplasm of prostate; Z80.1 Family history of malignant neoplasm of trachea, bronchus and lung; Z82.49 Family history of ischemic heart disease and other diseases of the circulatory system
CPT/HCPCS: 43281; S2900; 36415; 80048; 82948; 85027; A9270; J0690; J1100; J1170; J1650; J1741; J2250; J2371; J2405; J2704; J3010; J7030; J7120

== ENCOUNTER 2024-03-09 13:08 | Outpatient (CLI) | payer BC, SELFPAY ==
--- NOTE | ~2024-03-09 | DEXA_ITS ---
Bone Density Report Name: AGUSTO NGUYEN Age: 58 Sex: Female Ethnicity: White Date of : 1965 Indication: postmenopausal; screening for osteoporosis; height loss; Referring Provider: AGAPITO MARCOS Study: Bone densitometry was performed. Exam Date: March 09, 2024 Accession number: [id number] Bone Density: Region BMD T-score Z-score Classification AP Spine(L1, L2, L3) 0.897 -1.1 0.2 Osteopenia Femoral Neck (Left) 0.775 -0.7 0.5 Normal Total Hip (Left) 1.083 1.2 2.0 Normal Femoral Neck (Right) 0.794 -0.5 0.7 Normal Total Hip (Right) 1.025 0.7 1.5 Normal Femoral Neck Mean 0.784 -0.6 0.6 Normal Total Hip Mean 1.054 0.9 1.8 Normal World Health Organization criteria for BMD impression classify patients as: Normal (T-score at or above -1.0), Osteopenia (T-score between -1.0 and -2.5), or Osteoporosis (T-score at or below -2.5). 10-year Fracture Risk(1): Major Osteoporotic Fracture 6.1% Hip Fracture 0.2% Reported Risk Factors: [place] (), Neck BMD=0.775, BMI=33.1 (1) FRAX(R) Version 3.08. Fracture probability calculated for an untreated patient. Fracture probability may be lower if the patient has received treatment. Clinical Information Provided by Patient: Has used the following medications: HRT (i.e. estrogen/hormone therapy), Vitamin D, Calcium, multivitamins Patient maximum height was 63 Menopause Age: 53 Does not regularly consume dairy products Drinks caffeinated beverages Onset of menses at age 14 Number of children 0 Impression: The patient has low bone mass, based on the Total Spine T-score. Discussion: BONE DENSITY IS LOW AT ONE OR MORE SKELETAL SITES. This patient's lowest T-score is low at one or more skeletal sites. It meets the World Health Organization's (WHO) criteria for ?low bone mass? (T-score between -1.0 and -2.5). The patient's 10-year risk of fracture as calculated by FRAX is less than the threshold where pharmacological therapy is recommended by the National Osteoporosis Foundation (NOF). However, all treatment decisions require clinical judgment and consideration of individual patient factors, including patient preferences, comorbidities, previous drug use, risk factors not captured in the FRAX model (e.g., frailty, falls, vitamin D deficiency, increased bone turnover, interval significant decline in bone density) and possible under or overestimation of fracture risk by FRAX. The patient should follow a healthful lifestyle (good nutrition with adequate calcium and vitamin D, and appropriate weight-bearing exercise). Follow-Up: Consider repeating this study in 2 to 3 years to reassess this patient's status, or sooner if there is some new clinical indication. Reported by: MANOJ on 03/09/2024 1:39:00 PM. Reviewed, dictated and finalized at location A.
== END 2024-03-09 13:09 | disposition home or self-care (01) ==
PROVIDERS: PCP Internal Medicine; Visit Provider Obstetrics & Gynecology Gynecology
DX: Z78.0 Asymptomatic menopausal state (principal); M85.88 Other specified disorders of bone density and structure, other site
CPT/HCPCS: 77080